=== PATIENT | female | born 1965 | race Caucasian/White ===

== ENCOUNTER 2017-04-03 06:23 | Day surgery (SDC) | payer OTHER ==
[2017-04-03] MEDS ORDERED: MIDAZOLAM 1 MG/ML 2 ML INJ ×2 (07:57)
[2017-04-03] MEDS ORDERED: FENTAnyl 50 MCG/ML VIAL (07:57)
== END 2017-04-03 14:03 | disposition home or self-care (01) ==
LOC: GIL 06:23
DX: Z12.11 Encounter for screening for malignant neoplasm of colon (principal); K64.8 Other hemorrhoids
CPT/HCPCS: 45378